=== PATIENT | female | born 1970 | race Two or more races ===

== ENCOUNTER 2017-03-31 03:22 | Emergency (ER) | payer BC | END 2017-03-31 04:22 | disposition home or self-care (01) | LOC: D.ER 03:22 | DX: S62.607A Fracture of unspecified phalanx of left little finger, initial encounter for closed fracture (principal); X58.XXXA Exposure to other specified factors, initial encounter; Y93.89 Activity, other specified; Y92.019 Unspecified place in single-family (private) house as the place of occurrence of the external cause ==